=== PATIENT | female | born 1960 | race Caucasian/White ===

== ENCOUNTER 2016-07-25 17:27 | Inpatient (IN) | payer OTHER ==
[2016-07-25] MEDS ORDERED: IBUPROFEN 200 MG TAB PO ONE (17:50)
[2016-07-25] MEDS ORDERED: ACETAMINOPHEN 325 MG TAB PO ONE (18:07)
[2016-07-25 18:31] LABS: COLOR YELLOW; LEUKOCYTE ESTERASE,URINE TRACE (NEGATIVE); NITRITE,URINE NEGATIVE (NEGATIVE)
[2016-07-25 18:44] LABS: BACTERIA 3+ /hpf (NONE SEEN)
[2016-07-25] MEDS ORDERED: NS 1,000 ML IV ONE ×2 (18:44→20:04)
[2016-07-25] MEDS ORDERED: ONDANSETRON 4 MG/2 ML VIAL IVP ONE (19:00)
[2016-07-25 19:07] LABS: ADD MORPH? NO; ADD SCAN? YES; FRAGMENT RBC FLAG 0 (0-99); HEMATOCRIT 44.1 % (38.0-47.0); HEMOGLOBIN 14.1 g/dL (12.6-16.3); LEFT SHIFT FLG 10 (0-99); LIPEMIA HEMOLYSIS FLAG 80 (0-99); MEAN CELL HEMOGLOBIN 31.1 pg (27.9-34.1); MEAN CELL VOLUME 97.4 fL (81.5-99.8); MEAN PLATELET VOLUME 10.9 fL (8.7-11.7); PLATELET CLUMPS FLAG 10 (0-99); PLATELET COUNT 66 10^3/uL (150-400); RED BLOOD CELL COUNT 4.53 10^6/uL (4.18-5.33); RED CELL DISTRIBUTION WIDTH 14.2 % (11.5-15.2)
[2016-07-25 19:22] LABS: ATYPICAL LYMPHOCYTE FLAG 220 (0-99)
[2016-07-25 19:23] LABS: ADD DIFF? YES; SCAN POSITIVE
[2016-07-25 19:27] LABS: ALBUMIN 3.6 g/dL (3.5-5.0); ALKALINE PHOSPHATASE 62 IU/L (38-126); ANION GAP 14 mEq/L (8-16); BILIRUBIN,TOTAL 0.5 mg/dL (0.1-1.4); BILIRUBIN-CONJUGATED 0.3 mg/dL (0.0-0.5); BILIRUBIN-UNCONJUGATED 0.2 mg/dL (0.0-1.1); CALCIUM 8.2 mg/dL (8.5-10.4); CARBON DIOXIDE 23 mEq/l (22-31); CHLORIDE 94 mEq/L (97-110); CREATININE 0.9 mg/dL (0.6-1.0); GLOMERULAR FILTRATION RATE > 60; GLUCOSE 127 mg/dL (70-100); POTASSIUM 3.5 mEq/L (3.5-5.2); SODIUM 131 mEq/L (134-144); TOTAL PROTEIN 6.8 g/dL (6.3-8.2)
[2016-07-25 19:29] LABS: MACROCYTES 1+; PLATELET ESTIMATE DECREASED (ADEQ)
[2016-07-25 19:41] LABS: ALANINE AMINOTRANSFERASE 1403 IU/L (9-52); ASPARTATE AMINOTRANSFERASE 1933 IU/L (14-46)
--- NOTE | 2016-07-25 20:02 | UCPHY ---
H & P Patient Type: New Chief Complaint Nursing Narrative: c/o UTI/Vaginal infection /dizzyness/weakness /vomiting started 5 days ago - arrived from [facility] today Time Seen by Provider: 07/25/16 19:05 HPI/ROS: 55-year-old female presents complaining of fever, possible urinary tract infection, vomiting diarrhea generalized weakness. Three weeks ago she went to [facility] upon arriving there she had cold symptoms of sore throat earache and cough, she was started on amoxicillin and took that for 7 days. After that she was at a game preserve and following that a wedding in [facility]. Approximately 5 days ago she began to have nausea a poor appetite and then 2 days ago developed high fevers, vomiting and diarrhea. She chose to fly home despite feeling extremely ill. She was not on malaria prophylaxis. She states area of [facility] did not require it. She denies any unusual exposures. No other members of her family are ill. They all travelled together an ate similar foods. She denies any significant prior medical hx. She denies rash. Review of systems as per hpi General positive fever positive chills positive weakness HEENT no eye pain no eye discharge. No eye redness, no sore throat Respiratory no cough, no shortness of breath Cardiac no chest pain, no peripheral edema GI no abdominal pain, positive diarrhea, no constipation, positive nausea positive vomiting no flank pain, no hematuria, no dysuria Musculoskeletal no myalgias, no joint pain Heme no easy bruising, no easy bleeding Endo no polyuria, no polydipsia Skin no rashes, no pruritus Neuro no syncope, positive dizziness, no headaches Psych is no suicidal ideation, no homicidal ideation Source: Patient Exam Limitations: Clinical condition - Personal History Current Tetanus Diphtheria and Acellular Pertussis (TDAP): Unsure - Medical/Surgical History Hx Asthma: No Hx Chronic Respiratory Disease: No Hx Diabetes: No Hx Cardiac Disease: No Hx Renal Disease: No Hx Cirrhosis: No Hx Alcoholism: No Hx HIV/AIDS: No Hx Splenectomy or Spleen Trauma: No Other PMH: denies - Family History Significant Family History: No pertinent family hx - Social History Smoking Status: Never smoked Alcohol Use: Occasionally Drug Use: None - Physical Exam Exam: 55-year-old female appears ill, vital signs stable, febrile to 38 Atraumatic normocephalic Pupils round reactive to light bilaterally, extraocular muscles intact, anicteric Oropharynx dry mucosa no erythema no exudate Neck supple, no meningismus Lungs clear to auscultation bilaterally Heart rapid rate regular rhythm Abdomen-obese, bowel sounds hyperactive, no pulsatile mass no tenderness no guarding no rebound Extremities no cyanosis clubbing or edema Back no CVA tenderness Skin no rash Neuro-no focal motor or sensory deficit, generalized weakness noted Constitutional: Initial Vital Signs Temperature (C) 38 C 07/25/16 17:38 Heart Rate 78 07/25/16 17:38 Respiratory Rate 18 07/25/16 17:38 Blood Pressure 148/78 H 07/25/16 17:38 O2 Sat (%) 95 07/25/16 17:38 O2 Delivery Mode Room Air Allergies/Adverse Reactions: No Known Allergies Allergy (Unverified 07/25/16 17:37) Home Medications: Medication Instructions Recorded NK [No Known Home Meds] 07/25/16 Medical Decision Making - Diagnostics Imaging: CT brain negative Chest x-ray negative, however poor inspiration ED Course/Re-evaluation: Patient seen and evaluation begun for fever, diarrhea. IV established Normal saline fluids started Labs sent Influenza swab sent Lactate added urine sent Blood cultures added ct brain cxr Labs-White blood cell count 3.7 with a large left shift with 38% bands Electrolytes sodium low at 131 chloride 94 BUN and creatinine within normal limits LFTs AST and ALT markedly elevated Lactate normal Chest x-ray negative CT brain negative Urinalysis positive for white blood cells, trace leuk esterase negative for nitrite positive for 3+ bacteria Patient with history of diarrhea but no stool made while at Urgent Care will need stool testing when she has her next diarrhea Also patient will still need a malaria smear Differential diagnosis considered Gastroenteritis, urinary tract infection, urosepsis, sepsis, bacteremia, severe dehydration, malaria, typhoid, dengue fever Impression Acute gastroenteritis Urinary tract infection Severe dehydration Appearance concerning for impending sepsis I discussed this case with the infectious disease specialist, who recommended ertapenem and vancomycin. I also discussed this case with the hospitalist. Patient to be admitted at [facility] for further treatment and evaluation - Data Points Laboratory Results: Laboratory Results 07/25/16 18:50 07/25/16 18:50 07/25/16 07/25/16 07/25/16 20:25 18:50 18:50 WBC 3.73 10^3/uL L 10^3/uL (3.80-9.50) RBC 4.53 10^6/uL 10^6/uL (4.18-5.33) Hgb 14.1 g/dL g/dL (12.6-16.3) Hct 44.1 % % (38.0-47.0) MCV 97.4 fL fL (81.5-99.8) MCH 31.1 pg pg (27.9-34.1) MCHC 32.0 g/dL L g/dL (32.4-36.7) RDW 14.2 % % (11.5-15.2) Plt Count 66 10^3/uL L 10^3/uL (150-400) MPV 10.9 fL fL (8.7-11.7) Neut % (Auto) Not Reported Lymph % (Auto) Not Reported Gonzales % (Auto) Not Reported Eos % (Auto) Not Reported Baso % (Auto) Not Reported Nucleat RBC Rel Count 0.0 % % (0.0-0.2) Absolute Neuts (auto) Not Reported Absolute Lymphs (auto) Not Reported Absolute Monos (auto) Not Reported Absolute Eos (auto) Not Reported Absolute Basos (auto) Not Reported Absolute Nucleated RBC 0.00 10^3/uL 10^3/uL (0-0.01) Immature Gran % Not Reported Seg Neutrophils % 33 % % Band Neutrophils % 38 % % Lymphocytes % 27 % % Monocytes % 2 % % Immature Gran # Not Reported Absolute Seg Neuts 1.2 K/MM3 L K/MM3 (1.8-7) Absolute Band Neuts 1.4 K/MM3 H K/MM3 (0-0.7) Absolute Lymphocytes 1.0 K/mm3 K/mm3 (1.0-4.8) Absolute Monocytes 0.1 K/mm3 K/mm3 (0-0.8) Platelet Estimate DECREASED L (ADEQ) Oval Macrocytes 1+ H VBG Lactic Acid 0.5 mmol/L L mmol/L (0.7-2.1) Sodium 131 mEq/L L mEq/L (134-144) Potassium 3.5 mEq/L mEq/L (3.5-5.2) Chloride 94 mEq/L L mEq/L (97-110) Carbon Dioxide 23 mEq/l mEq/l (22-31) Anion Gap 14 mEq/L mEq/L (8-16) BUN 21 mg/dL mg/dL (7-23) Creatinine 0.9 mg/dL mg/dL (0.6-1.0) Estimated GFR > 60 Glucose 127 mg/dL H mg/dL (70-100) Calcium 8.2 mg/dL L mg/dL (8.5-10.4) Total Bilirubin 0.5 mg/dL mg/dL (0.1-1.4) Conjugated Bilirubin 0.3 mg/dL mg/dL (0.0-0.5) Unconjugated Bilirubin 0.2 mg/dL mg/dL (0.0-1.1) AST 1933 IU/L H IU/L (14-46) ALT 1403 IU/L H IU/L (9-52) Alkaline Phosphatase 62 IU/L IU/L (38-126) Total Protein 6.8 g/dL g/dL (6.3-8.2) Albumin 3.6 g/dL g/dL (3.5-5.0) Lipase 266.0 IU/L IU/L (23-300) Urine Color Urine Appearance Urine pH Ur Specific [place] Urine Protein Urine Ketones Urine Blood Urine Nitrate Urine Bilirubin Urine Urobilinogen Ur Leukocyte Esterase Urine RBC Urine WBC Ur Epithelial Cells Urine Bacteria Hyaline Casts Ur Culture Indicated? Urine Glucose Influenza Typ A,B (DFA) 07/25/16 07/25/16 18:28 18:00 WBC RBC Hgb Hct MCV MCH MCHC RDW Plt Count MPV Neut % (Auto) Lymph % (Auto) Gonzales % (Auto) Eos % (Auto) Baso % (Auto) Nucleat RBC Rel Count Absolute Neuts (auto) Absolute Lymphs (auto) Absolute Monos (auto) Absolute Eos (auto) Absolute Basos (auto) Absolute Nucleated RBC Immature Gran % Seg Neutrophils % Band Neutrophils % Lymphocytes % Monocytes % Immature Gran # Absolute Seg Neuts Absolute Band Neuts Absolute Lymphocytes Absolute Monocytes Platelet Estimate Oval Macrocytes VBG Lactic Acid Sodium Potassium Chloride Carbon Dioxide Anion Gap BUN Creatinine Estimated GFR Glucose Calcium Total Bilirubin Conjugated Bilirubin Unconjugated Bilirubin AST ALT Alkaline Phosphatase Total Protein Albumin Lipase Urine Color YELLOW Urine Appearance CLEAR Urine pH 6.0 (5.0-7.5) Ur Specific [place] >= 1.030 (1.002-1.030) Urine Protein 2+ H (NEGATIVE) Urine Ketones NEGATIVE (NEGATIVE) Urine Blood 3+ H (NEGATIVE) Urine Nitrate NEGATIVE (NEGATIVE) Urine Bilirubin NEGATIVE (NEGATIVE) Urine Urobilinogen 0.2 EU EU (0.2-1.0) Ur Leukocyte Esterase TRACE H (NEGATIVE) Urine RBC 3-5 /hpf H /hpf (0-3) Urine WBC 10-15 /hpf H /hpf (0-3) Ur Epithelial Cells 2+ /lpf H /lpf (NONE-1+) Urine Bacteria 3+ /hpf H /hpf (NONE SEEN) Hyaline Casts 1-3 /lpf H /lpf (0-1) Ur Culture Indicated? INDICATED H (NI) Urine Glucose NEGATIVE (NEGATIVE) Influenza Typ A,B (DFA) NEGATIVE FOR FLU (NEGATIVE) Medications Given: Discontinued Medications Acetaminophen (Tylenol) 650 mg PO EDNOW ONE Stop: 07/25/16 18:08 Last Admin: 07/25/16 18:09 Dose: 1,000 mg Sodium Chloride (Ns) 1,000 mls @ 0 mls/hr IV ONCE ONE PRN Reason: Wide Open Stop: 07/25/16 18:45 Last Admin: 07/25/16 18:55 Dose: 1,000 mls Sodium Chloride (Ns) 1,000 mls @ 0 mls/hr IV ONCE ONE PRN Reason: Wide Open Stop: 07/25/16 20:05 Last Admin: 07/25/16 20:15 Dose: 1,000 mls Ertapenem 1 gm/ Sodium (Chloride) 100 mls @ 200 mls/hr IV EDNOW ONE PRN Reason: Protocol Stop: 07/25/16 21:25 Last Admin: 07/25/16 21:20 Dose: 100 mls Vancomycin HCl 2 gm/ Sodium (Chloride) 500 mls @ 250 mls/hr IV EDNOW ONE PRN Reason: Protocol Stop: 07/25/16 22:55 Last Admin: 07/25/16 21:20 Dose: 500 mls Ibuprofen (Motrin) 400 mg PO EDNOW ONE Stop: 07/25/16 17:51 Last Admin: 07/25/16 18:01 Dose: 400 mg Ondansetron HCl (Zofran) 4 mg IVP EDNOW ONE Stop: 07/25/16 19:01 Last Admin: 07/25/16 19:07 Dose: 4 mg Departure - Departure Disposition: [facility] Acute Condition: Fair - PQRS PQRS Measurement: Not applicable
[2016-07-25] MEDS ORDERED: VANCOMYCIN 2 GM in NS 500 ML IV ONE (20:56)
[2016-07-25] MEDS ORDERED: ERTAPENEM 1 GM in NS 100 ML IV ONE (20:56)
[2016-07-26] MEDS ORDERED: ONDANSETRON 4 MG/2 ML VIAL IVP PRN (01:40)
[2016-07-26] MEDS ORDERED: PROMETHAZINE HCL 25 MG TAB PO PRN (01:40)
[2016-07-26] MEDS ORDERED: ONDANSETRON DISINTEGRATING 4 MG TAB PO PRN (01:40)
[2016-07-26] MEDS: NS 1,000 ML IV SCH ×3 (01:57→19:57)
--- NOTE | 2016-07-26 02:32 | GHP ---
[f rep st] HISTORY AND PHYSICAL DATE OF ADMISSION: 07/25/2016 HISTORY OF PRESENT ILLNESS: The patient is a pleasant 55-year-old female with minimal past medical history, just returned from [facility] for a trip for a wedding. She was there for about a week o r longer. She, the last 5 days, has had fever, chills, some nausea, some vomiting, some urgency, fr equency, dysuria, and a dry cough as well as general malaise. She also had a headache. She complet ed a 7 day course of Augmentin while there. She says she had about 4-5 drinks per day while there, which is unusual for her. She has not taken a significant amount of Tylenol. The patient was in [facility] for 3 weeks. She went to a game preserve and she had a sandwich wit h some suspect lettuce, and she also ate local sausage jerky style meal that was [facility] [place] a [facility]. She is on malaria prophylaxis. She said this part of does not have endemic malaria. No one around her has been sick. She has not noticed jaundice, easy bleeding, or easy bruising. REVIEW OF SYSTEMS: Complete 10-point review of systems conducted and negative except as noted in th e HPI. PAST MEDICAL HISTORY: None. ALLERGIES: None. MEDICATIONS: Home prescriptions are none. FAMILY HISTORY: Family members have not been sick during this hospitalization. PHYSICAL EXAMINATION: VITAL SIGNS: Presenting vitals: Temperature 38, blood pressure 148/78, puls e 78, breathing 18 times a minute, 95% on room air. GENERAL: No acute distress. Appears fatigued. HEENT: Sclerae anicteric. Oropharynx clear. Mucous membranes are moist. NECK: Supple without lymphadenopathy or JVD. LUNGS: Clear to auscultation bilaterally. HEART: S1, S2. ABDOMEN: Soft , nontender, nondistended. There is no right upper quadrant tenderness. There is no Onofre sign. There is no ascites. EXTREMITIES: Lower extremities show trace edema bilaterally. Calves are nont maryse. SKIN: Without rash. NEUROLOGIC: Grossly nonfocal. LABS: White count 3.7. No differential. Hematocrit 44, platelets are 66,000. Venous lactate is 0 .5. Sodium 131, potassium 3.5, chloride 94, bicarb 23, BUN 21, creatinine 0.9, glucose 127. Calciu m low at 8.2. Bilirubin is normal. AST is 1933, ALT is 1403, alkaline phosphatase 62. Lipase 266. UA shows 10-50 white cells, 3-5 red cells, 3+ bacteria, 2+ epithelial cells. She is influenza neg ative. RADIOLOGY: Chest x-ray, interpreted by me, is a poor quality AP study with limited interpretability . Cannot rule out infiltrate. Noncontrast head CT shows nonspecific maxillary sinuses. I have dis cussed the case with Dr. Workman of Urgent Care. ASSESSMENT AND PLAN: A 55-year-old female with fever and transaminitis. 1. Transaminitis. I suspect this is secondary to a viral illness. It sounds like her alcohol use was heavy for her but not enough to cause an acute alcoholic hepatitis. 2. I will check a right upper quadrant ultrasound to rule out any ductal pathology. Her pattern of LFT is not consistent with cholestasis. I will check an acute hepatitis panel. Hold Tylenol. She denies heavy Tylenol, so we will not check a level. I do not think this is alcohol. 3. Question sepsis. This patient does not have sepsis. She has a fever and transaminitis. 4. Urinary tract infection. This is a dirty UA sample. She received 7 days of amoxicillin. I tiffanie l not treat this. 5. Question pneumonia. I will check a PA and lateral chest x-ray. Her body habitus precludes a hi gh quality exam, as her admission chest x-ray was low quality. 6. Antibiotics. The patient received vancomycin, at urgent care. Will not continue ant ibiotics at this time. 7. Hyponatremia, mild. I suspect this is hypovolemic hyponatremia. Give her a liter of saline and follow. 8. Fever and travel returning from [place]. Will check malaria. ID is being consulted by urgent ca re and we will acute hepatitis panel. 9. Prophylaxis. Will check SCDs I will order an INR in the morning. Should she have a prolonged h ospitalization, then pharmacologic prophylaxis is indicated. /[id number]/MODL
[2016-07-26 05:43] LABS: % IMMATURE GRANULYOCYTES 0.6 % (0.0-1.1); ABSOLUTE IMMATURE GRANULOCYTES 0.02 10^3/uL (0.00-0.10); ADD DIFF? NO; ADD MORPH? NO; ADD SCAN? YES; FRAGMENT RBC FLAG 0 (0-99); HEMATOCRIT 39.6 % (38.0-47.0); HEMOGLOBIN 13.1 g/dL (12.6-16.3); LEFT SHIFT FLG 30 (0-99); LIPEMIA HEMOLYSIS FLAG 80 (0-99); MEAN CELL HEMOGLOBIN 29.5 pg (27.9-34.1); MEAN CELL HEMOGLOBIN CONCENTR. 33.1 g/dL (32.4-36.7); MEAN CELL VOLUME 89.2 fL (81.5-99.8); MEAN PLATELET VOLUME 11.2 fL (8.7-11.7); PLATELET CLUMPS FLAG 0 (0-99); PLATELET COUNT 80 10^3/uL (150-400); RED BLOOD CELL COUNT 4.44 10^6/uL (4.18-5.33); RED CELL DISTRIBUTION WIDTH 14.3 % (11.5-15.2)
[2016-07-26 05:48] LABS: ATYPICAL LYMPHOCYTE FLAG 270 (0-99)
[2016-07-26 05:49] LABS: ALBUMIN 2.9 g/dL (3.5-5.0); ALKALINE PHOSPHATASE 47 IU/L (38-126); ANION GAP 7 mEq/L (8-16); BILIRUBIN,TOTAL 0.4 mg/dL (0.1-1.4); CALCIUM 7.3 mg/dL (8.5-10.4); CARBON DIOXIDE 24 mEq/l (22-31); CHLORIDE 102 mEq/L (97-110); CREATININE 0.9 mg/dL (0.6-1.0); GLOMERULAR FILTRATION RATE > 60; GLUCOSE 89 mg/dL (70-100); POTASSIUM 3.3 mEq/L (3.5-5.2); SODIUM 133 mEq/L (134-144); TOTAL PROTEIN 5.7 g/dL (6.3-8.2)
[2016-07-26 05:55] LABS: ASPARTATE AMINOTRANSFERASE 1290 IU/L (14-46)
[2016-07-26 05:56] LABS: ALANINE AMINOTRANSFERASE 1060 IU/L (9-52)
[2016-07-26 06:13] LABS: INR 1.11 (0.83-1.16); PROTIME(PATIENT) 14.2 SEC (12.0-15.0)
[2016-07-26 07:14] LABS: SCAN NEGATIVE
[2016-07-26] MEDS: IBUPROFEN 200 MG TAB PO PRN ×3 (07:34→22:23)
[2016-07-26] MEDS ORDERED: POTASSIUM CL 20 MEQ/15 ML UDCUP PO ONE (09:06)
--- NOTE | 2016-07-26 09:08 | HOSPPROG ---
Hospitalist Progress Note Assessment/Plan: #E coli (Shiga-toxin) gastrointestinal infection: no abd pain, hematochezia. Cont IVFs. No abx as can exacerbate toxins #Leukopenia/thrombocytopenia: suspect viral. Hep serologies and HIV negative. CMV, mono pending #Transaminitis: out of proportion for bacterial infection. Suspect viral. Check mono, CMV. Malaria smear negative #Hypovolemic hyponatremia: cont IVFs #Hypokalemia: replete # Subjective: denies abd pain or bloody stools Objective: Vital Signs Temp Pulse Resp BP Pulse Ox 39.2 C H 72 16 104/46 L 95 07/26/16 08:42 07/26/16 07:31 07/26/16 07:31 07/26/16 07:31 07/26/16 07:31 Microbiology 07/26/16 00:30 Gastrointestinal Tract Panel (PCR) - Final Stool E.coli Shiga-Like Toxin Pos Laboratory Results 07/26/16 04:17 07/26/16 04:17 07/25/16 07/26/16 07/27/16 05:59 05:59 05:59 Intake Total 2794 Balance 2794 PT 14.2 SEC (12.0-15.0) 07/26/16 04:17 INR 1.11 (0.83-1.16) 07/26/16 04:17 - Physical Exam Constitutional: other (ill-appearing) Eyes: PERRL Ears, Nose, Mouth, Throat: moist mucous membranes, hearing normal Cardiovascular: regular rate and rhythym, no murmur, rub, or gallop Respiratory: no respiratory distress, no rales or rhonchi Gastrointestinal: normoactive bowel sounds, soft, non-tender abdomen, no palpable masses Genitourinary: no bladder fullness Skin: warm Musculoskeletal: full muscle strength Neurologic: AAOx3, sensation intact bilaterally Psychiatric: interacting appropriately ICD10 Worksheet Patient Problems: Problems Problem Status Onset Thrombocytopenia Acute - ICD10 Problem Qualifiers (1) Thrombocytopenia
[2016-07-26 09:32] LABS: MALARIAL PREP NONE SEEN (NONE SEEN)
[2016-07-26] MEDS: CALCIUM CARBONATE 500 MG CHEWABLE TAB PO PRN ×2 (10:49→15:28)
--- NOTE | 2016-07-26 17:00 | GCON ---
[f rep st] CONSULTATION INFECTIOUS DISEASE CONSULTATION DATE OF CONSULTATION: 07/26/2016 REASON FOR CONSULTATION: Febrile illness following travel. HISTORY OF PRESENT ILLNESS: A 55-year-old woman with minimal past medical history presented to urgent care in the evening of 07/25/2016, complaining of concerns for UTI, dizziness, weakness, diarrhea, and vomiting after returning from a 3-week trip to [facility]. The patient had a fairly uneventful trip to [facility] where she is originally from, spending time in [place] and approximately 1 hour outside of [place] at a game reserve prior to return to the . When she was returning, she subsequently developed severe malaise on the aircraft, was very sleepy, slept the entire time, and on the subsequently developed diarrhea and vomiting. She also had subjective fevers, chills. She primarily presented to urgent care on the , as her primary care had no urgent slots, and the patient felt significantly dehydrated. Significantly, the patient's diarrhea is better today. She denies any bright red blood per rectum or melena. She also reports that her malaise is slightly better. PAST MEDICAL HISTORY: None. ALLERGIES: NKDA. MEDICATIONS: The patient received 1 dose of ertapenem and 1 dose of 2 g of vancomycin in the emergency room. FAMILY HISTORY: No other illnesses in the family. No pertinent diseases that run in the family. REVIEW OF SYSTEMS: A complete 10-point review of systems was performed and is negative except as mentioned in the HPI. Patient does have a mild cough. PHYSICAL EXAMINATION: VITAL SIGNS: Temperature 38.8, blood pressure 94/56, heart rate 65, respiratory rate 16, saturation 94% on room air. GENERAL: This is fairly nontoxic-appearing woman, lying in bed. HEENT: No oral lesions. Moist mucous membranes. NECK: Supple. No lymphadenopathy. CARDIOVASCULAR: Regular rate and rhythm. No murmurs. CHEST: Clear to auscultation bilaterally. ABDOMEN: Hyperactive bowel sounds. Soft, nontender, slightly distended. EXTREMITIES: No clubbing, cyanosis, or edema. NEUROLOGIC: She was alert and oriented x4 with fluent speech, moving all 4 extremities equally. LABORATORY DATA: White count 3.5, hematocrit 39, platelets of 80, 65% neutrophils, 30% lymphocytes, 2% monos, 0% eosinophils. Initially, the patient had 38% bands. INR 1.1. Creatinine 0.9. LFTs on admission: AST was 1933; today is 1290. ALT was 1403; today is 1060. Total bilirubin is normal. Albumin today 2.9, lipase 266. Malaria smear was negative. Influenza DFA was negative. Hepatitis serologies, including A, B, and C are negative. CMV serologies are pending. Blood cultures are pending. Stool PCR was positive for E coli, shiga-producing toxin E coli. ASSESSMENT: A 55-year-old woman who presents to the emergency room with significant volume depletion due to N/V/D and found to have leukopenia, thrombocytopenia and hepatitis. Subsequently identified to have traveler diarrhea due to Escherichia coli with shiga-producing toxin. 1. Traveler's diarrhea secondary to Escherichia coli with shiga-producing toxin 2. Fever 3. Hepatitis, improving w supportive care, negative acute viral hepatitis serologies. Hypovolemia secondary to travelers diarrhea or other viral illness. Noting, Dengue unlikely in [place]. 4. Leukopenia, thrombocytopenia likely response to Escherichia coli with shiga- producing toxin RECOMMENDATIONS; 1. Continue supportive care. 2. Hold antibiotics unless patient is bacteremic. In the absence of bacteremia , treatment of E coli with shiga-producing toxin, could elicit a more severe HUS response. 3. Agree with further workup for other etiologies of hepatitis such as cytomegalovirus, EBV. 4. Warnings given about possible contact from local Health Department Thank you for this consultation. We will continue to follow along with you. /[id number]/MODL MTDD
[2016-07-26] MEDS: FAMOTIDINE 20 MG TAB PO SCH (18:16)
[2016-07-27] MEDS: NS 1,000 ML IV SCH (04:31)
[2016-07-27 04:33] VITALS: BP 96/51
[2016-07-27] MEDS: IBUPROFEN 200 MG TAB PO PRN (04:47)
[2016-07-27 05:30] LABS: HEMATOCRIT 34.4 % (38.0-47.0); HEMOGLOBIN 11.4 g/dL (12.6-16.3); MEAN CELL HEMOGLOBIN 29.8 pg (27.9-34.1); MEAN CELL HEMOGLOBIN CONCENTR. 33.1 g/dL (32.4-36.7); MEAN CELL VOLUME 89.8 fL (81.5-99.8); RED BLOOD CELL COUNT 3.83 10^6/uL (4.18-5.33); RED CELL DISTRIBUTION WIDTH 14.5 % (11.5-15.2)
[2016-07-27 05:56] LABS: ALANINE AMINOTRANSFERASE 795 IU/L (9-52); ALBUMIN 2.5 g/dL (3.5-5.0); ALKALINE PHOSPHATASE 50 IU/L (38-126); ANION GAP 5 mEq/L (8-16); BILIRUBIN,TOTAL 0.3 mg/dL (0.1-1.4); CALCIUM 7.4 mg/dL (8.5-10.4); CARBON DIOXIDE 23 mEq/l (22-31); CHLORIDE 107 mEq/L (97-110); CREATININE 0.8 mg/dL (0.6-1.0); GLOMERULAR FILTRATION RATE > 60; GLUCOSE 83 mg/dL (70-100); POTASSIUM 3.7 mEq/L (3.5-5.2); SODIUM 135 mEq/L (134-144); TOTAL PROTEIN 4.8 g/dL (6.3-8.2)
[2016-07-27 06:15] LABS: ASPARTATE AMINOTRANSFERASE 840 IU/L (14-46)
--- NOTE | 2016-07-27 08:12 | HOSPPROG ---
Hospitalist Progress Note Assessment/Plan: #E coli (Shiga-toxin) gastrointestinal infection: no abd pain, hematochezia. Cont IVFs. No abx as can exacerbate toxins/HUS #Leukopenia/thrombocytopenia: suspect viral. Hep serologies and HIV negative. CMV, mono pending #Transaminitis: Suspect viral. Monospot and malaria negative. CMV pending #Hypovolemic hyponatremia: resolved #Hypokalemia: repleted #DC today # Subjective: feeling better Objective: Vital Signs Temp Pulse Resp BP Pulse Ox 38.9 C H 69 20 96/51 L 89 L 07/27/16 04:32 07/27/16 04:32 07/27/16 04:32 07/27/16 04:32 07/27/16 04:32 Microbiology 07/26/16 00:30 Gastrointestinal Tract Panel (PCR) - Final Stool E.coli Shiga-Like Toxin Pos Laboratory Results 07/27/16 04:23 07/27/16 04:23 07/26/16 07/27/16 07/28/16 05:59 05:59 05:59 Intake Total 2794 2967 Balance 2794 2967 PT 14.2 SEC (12.0-15.0) 07/26/16 04:17 INR 1.11 (0.83-1.16) 07/26/16 04:17 - Physical Exam Constitutional: no apparent distress Eyes: PERRL Ears, Nose, Mouth, Throat: moist mucous membranes Cardiovascular: regular rate and rhythym Respiratory: no respiratory distress, no rales or rhonchi Gastrointestinal: normoactive bowel sounds, soft, non-tender abdomen Skin: warm, normal color, no rashes or abrasions Neurologic: AAOx3 ICD10 Worksheet Patient Problems: Problems Problem Status Onset Thrombocytopenia Acute - ICD10 Problem Qualifiers (1) Thrombocytopenia
[2016-07-27 08:20] VITALS: PULSE 62; RESP 16; TEMP 99.6; O2SAT 92
[2016-07-27] MEDS: FAMOTIDINE 20 MG TAB PO SCH (09:50)
[2016-07-27] MEDS ORDERED: PHENAZOPYRIDINE HCL 100 MG TAB PO SCH (13:00)
--- NOTE | 2016-07-27 15:21 | PCMIDPN ---
Assessment/Plan: Assessment: Fever with nausea and diarrhea. Laboratory abnormalities include marked transaminitis as well as low white blood cell count and platelets. Patient developed this illness shortly after returning from a multi week trip to [facility]. During that trip she was at a game preserved. She recalls no tick bites. She recalls no lesions consistent with eschar. However the laboratory abnormalities are reminiscent of rickettsial disease. Will send off rickettsial panel serologies for spotted fever family. Will not treat this potential empirically with doxycycline due to its cross treatment of the sugar toxin E coli detected in her stool by PCR. It is unclear whether all of her laboratory abnormalities could be due to shiga toxin producing E coli but it is possible. If this is the sole pathogen in this requires no antibiotic treatment. Plan: 1. Continue to observe off antibiotics. 2. Follow up in the office as an outpatient in approximately 1 week time. 3. Send off rickettsial serologically panel. 07/27/16 17:08 Subjective: Patient is resting in her hospital bed. She states that she feels significantly improved. Still does not feel well but wishes to recover at home. Objective: No antibiotics Vital Signs Temp Pulse Resp BP Pulse Ox 37.6 C 62 16 96/51 L 92 07/27/16 08:00 07/27/16 08:00 07/27/16 08:00 07/27/16 08:00 07/27/16 08:00 Laboratory Results 07/27/16 04:23 07/27/16 04:23 07/26/16 07/27/16 07/28/16 05:59 05:59 05:59 Intake Total 2794 2967 Balance 2794 2967 - Physical Exam General Appearance: WD/WN, alert, no apparent distress, toxic (Mildly) Respiratory: lungs clear, normal breath sounds, No respiratory distress Cardiac/Chest: regular rate, rhythm, No tachycardia Extremities: non-tender, normal inspection Skin: normal color, warm/dry, No rash Neuro/Psych: alert, normal mood/affect, oriented x 3 ICD10 Worksheet Patient Problems: Problems Problem Status Onset Thrombocytopenia Acute
--- NOTE | 2016-07-27 17:11 | GDS ---
[f rep st] DISCHARGE SUMMARY DISCHARGE DIAGNOSES: 1. Escherichia coli-shiga toxin gastrointestinal infection. 2. Leukopenia. 3. Thrombocytopenia. 4. Transaminitis. 5. Hypovolemic hyponatremia. 6. Hypokalemia. 7. Dysuria. CONSULTATIONS: Infectious Disease. HISTORY OF PRESENT ILLNESS: The patient is a pleasant 55-year-old female with no significant past medical history who just returned from visiting her home in [facility] for a trip for a wedding. She was there for a week. Over the last 5 days, she reported fevers, chills, nausea, vomiting, urinary urgency, frequency and malaise. She also reported a headache, but no neck stiffness. While there, she completed a 7 day course of Augmentin. She also reports drinking more alcohol than she normally does, 4-5 drinks. She denies significant Tylenol ingestion. While in [facility] she went to [employer] and had a sandwich [place] She is on malaria prophylaxis. She denies ill contacts. No rash or easy bruising. ASSESSMENT AND PLAN: 1. Escherichia coli-shiga toxin gastroenteritis: Stool PCR was positive. She actually denies abdominal pain. Did have diarrhea, no hematochezia. Given her significant transaminitis, platelets would be unusual with this bacteria infection. Will not treat with antibiotics as could worsen HUS. The patient was evaluated by Infectious Disease and another consideration is Rickettsial infection. These labs have been sent to [facility]. Patient will follow up with Dr. Duncan in 1 week. [place], malaria smear were negative. CMV IgG is positive, indicative of past infection. 2. Leukopenia/thrombocytopenia: This is again unusual given Escherichia coli infection. Can be seen with Rickettsia. Awaiting those labs. Treatment of choice would be doxycycline, however, will not treat as could exacerbate HUS syndrome and do not want to cause more harm if not the actual diagnosis. 3. Transaminitis: Again likely due to viral versus Rickettial infection. Some component may have been due to dehydration, but still out of proportion. These are trending down. Will have repeat with Infectious Disease. 4. Dysuria: Had a positive UA, but greater than 5 colonies on culture. Will provide Pyridium for symptom relief. 5. Diet: Clear. Advance as tolerated. 6. Disposition: Patient is stable for discharge. FOLLOWUP: 1. Dr. Duncan with Infectious Disease. 2. Repeat CMP, CBC. 3. New medications Pyridium for dysuria. /[id number]/MODL MTDD
== END 2016-07-27 15:15 | disposition home or self-care (01) | DRG 372 ==
LOC: CED 17:27 → CEDHOLD 21:27 → F3E 23:29
PROVIDERS: ADMIT Internal Medicine; ATTEND Internal Medicine
DX: A04.4 Other intestinal Escherichia coli infections (principal); E87.1 Hypo-osmolality and hyponatremia; R74.0 Nonspecific elevation of levels of transaminase and lactic acid dehydrogenase [LDH]; R30.0 Dysuria; E86.1 Hypovolemia; E87.6 Hypokalemia; E86.0 Dehydration; K75.9 Inflammatory liver disease, unspecified
CPT/HCPCS: 70450-PO; 71010-PO; 80048-PO; 80076-PO; 81003-PO; 81015-PO; 83605-PO; 83690-PO; 85025-PO; 86644-90; 86645-90; 87400-PO; 96361-PO; 96365-PO; 96366-PO; 96368-PO; 96375-PO; G0463-PO; G0472; J1335; J2405; J3370

== ENCOUNTER 2016-07-30 12:59 | Emergency (ER) | payer OTHER ==
--- NOTE | 2016-07-30 13:20 | EDPHY ---
HPI/HX/ROS/PE/MDM Narrative: CHIEF COMPLAINT: Diarrhea, abdominal pain HPI: The patient is a 55 y/o female, with recent diagnosis of e. coli, arriving with her family at the referral of Dr. Zuniga complaining of worsening nausea, diarrhea, and abdominal pain. She is from [facility] and recently returned to [place] from a trip there. During her flight back, she developed malaise, fever , and GI symptoms that ultimately required admission on 07/25/16, 5 days ago. She was diagnosed with e. coli during that 1-day stay and is being followed by infectious disease since discharge. She has had difficulty eating for the last several days due to nausea. She is not currently on antibiotics. Today, her nausea, diarrhea, and abdominal pain worsened. She denies a fever today. She does endorse an ongoing cough and dysuria that has been present throughout this illness. REVIEW OF SYSTEMS: Aside from elements discussed in the HPI, a comprehensive 10-point review of systems was reviewed and is negative. PMH: 2 c-sections; admission 07/25/16 for e. coli and transaminitis Reviewed prior medical records including admission notes and ID consultation from 07/25/16. SOCIAL HISTORY: From [facility]. Family at bedside. Recently quit smoking. ID : Dr. Sandra Zuniga. PHYSICAL EXAM: General:Patient is alert, in no acute distress. ENT:Eyes are normal to inspection. ENT inspection normal. Neck: Normal inspection. Full range of motion. Respiratory:No respiratory distress. Breath sounds normal bilaterally. Cardiovascular: Regular rate and rhythm. Strong peripheral pulses. Normal cap refill. Abdomen:The abdomen is soft with mild RLQ tenderness to palpation. There are no peritoneal signs. There are normal bowel sounds. Back: Normal to inspection. No tenderness to palpation. Skin: Normal color. No rash. Warm and dry. Extremities: Normal appearance. Full range of motion. Neuro: Oriented x3. Normal motor function. Normal sensory function. ED Course: IV established. Labs including cultures drawn. UA ordered. Chest x-ray ordered. 4mg IV Zofran and 1L IV NS administered. Study: Chest x-ray Indication: cough, fever, malaise Results: Chest x-ray was obtained. The results of the study are no infiltrate. Radiologist report pending. I viewed the images myself on the PACS system. 1430: Dr. Zuniga is in the ED assessing patient. She notes there is some faint urticaria on patient's upper chest and a small ulceration on her tongue. LFTs are elevated, but improved from previous visit. UA is unremarkable. 1530: Dr. Zuniga recommends outpatient follow up this week. Patient agrees with this plan. Return precautions given. MDM: This patient was sent to the ED by Efrain Clancy with continued malaise and diarrhea. Her vitals are normal and her exam is reassuring. Dr. Zuniga evaluated the patient in the ED and reviewed lab results with me. She believes this may represent Chikungunya and has sent off appropriate blood work which will be done at a referral facility. She recommends discharge to home from the ED and will be followed closely by Dr. Zuniga. I see no signs of septic shock, pyelonephritis, bowel obstruction or meningitis. - Data Points Laboratory Results: Laboratory Results 07/30/16 01:20 07/30/16 01:20 07/30/16 07/30/16 07/30/16 14:40 01:20 01:20 WBC 5.01 10^3/uL 10^3/uL (3.80-9.50) RBC 4.18 10^6/uL 10^6/uL (4.18-5.33) Hgb 12.3 g/dL L g/dL (12.6-16.3) Hct 36.3 % L % (38.0-47.0) MCV 86.8 fL fL (81.5-99.8) MCH 29.4 pg pg (27.9-34.1) MCHC 33.9 g/dL g/dL (32.4-36.7) RDW 14.6 % % (11.5-15.2) Plt Count 204 10^3/uL D 10^3/uL (150-400) MPV 10.7 fL fL (8.7-11.7) Neut % (Auto) 38.3 % L % (39.3-74.2) Lymph % (Auto) 52.3 % H % (15.0-45.0) [place] % (Auto) 7.2 % % (4.5-13.0) Eos % (Auto) 1.4 % % (0.6-7.6) Baso % (Auto) 0.6 % % (0.3-1.7) Nucleat RBC Rel Count 0.0 % % (0.0-0.2) Absolute Neuts (auto) 1.92 10^3/uL 10^3/uL (1.70-6.50) Absolute Lymphs (auto) 2.62 10^3/uL 10^3/uL (1.00-3.00) Absolute Monos (auto) 0.36 10^3/uL 10^3/uL (0.30-0.80) Absolute Eos (auto) 0.07 10^3/uL 10^3/uL (0.03-0.40) Absolute Basos (auto) 0.03 10^3/uL 10^3/uL (0.02-0.10) Absolute Nucleated RBC 0.00 10^3/uL 10^3/uL (0-0.01) Immature Gran % 0.2 % % (0.0-1.1) Seg Neutrophils % 37 % % Band Neutrophils % 5 % % Lymphocytes % 50 % % Monocytes % 7 % % Eosinophils % 1 % % Immature Gran # 0.01 10^3/uL 10^3/uL (0.00-0.10) Absolute Seg Neuts 1.85 10^/uL 10^/uL (1.70-6.50) Absolute Band Neuts 0.25 10^3/uL 10^3/uL (0.00-0.70) Absolute Lymphocytes 2.51 10^3/uL 10^3/uL (1.00-3.00) Absolute Monocytes 0.35 10^3/uL 10^3/uL (0.30-0.80) Absolute Eosinophils 0.05 10^3/uL 10^3/uL (0.03-0.40) RBC/WBC/PLT Morphology NORMAL (NORMAL) Atypical Lymphocytes 2+ H Platelet Estimate ADEQUATE (ADEQ) Smear Review By Pending Sodium 144 mEq/L mEq/L (134-144) Potassium 4.0 mEq/L mEq/L (3.5-5.2) Chloride 107 mEq/L mEq/L (97-110) Carbon Dioxide 28 mEq/l mEq/l (22-31) Anion Gap 9 mEq/L mEq/L (8-16) BUN 8 mg/dL mg/dL (7-23) Creatinine 0.6 mg/dL mg/dL (0.6-1.0) Estimated GFR > 60 Glucose 97 mg/dL mg/dL (70-100) Calcium 8.6 mg/dL D mg/dL (8.5-10.4) Total Bilirubin 0.7 mg/dL D mg/dL (0.1-1.4) AST 176 IU/L H IU/L (14-46) ALT 450 IU/L H IU/L (9-52) Alkaline Phosphatase 83 IU/L IU/L (38-126) Total Protein 6.0 g/dL L D g/dL (6.3-8.2) Albumin 3.0 g/dL L g/dL (3.5-5.0) Urine Color YELLOW Urine Appearance CLEAR Urine pH 7.0 (5.0-7.5) Ur Specific Vincent 1.002 (1.002-1.030) Urine Protein NEGATIVE (NEGATIVE) Urine Ketones NEGATIVE (NEGATIVE) Urine Blood 1+ H (NEGATIVE) Urine Nitrate NEGATIVE (NEGATIVE) Urine Bilirubin NEGATIVE (NEGATIVE) Urine Urobilinogen NEGATIVE EU EU (0.2-1.0) Ur Leukocyte Esterase NEGATIVE (NEGATIVE) Urine RBC 1-3 /hpf /hpf (0-3) Urine WBC 1-3 /hpf /hpf (0-3) Ur Epithelial Cells TRACE /lpf /lpf (NONE-1+) Urine Bacteria TRACE /hpf H /hpf (NONE SEEN) Urine Glucose NEGATIVE (NEGATIVE) Medications Given: Discontinued Medications Sodium Chloride (Ns) 1,000 mls @ 0 mls/hr IV ONCE ONE PRN Reason: Wide Open Stop: 07/30/16 13:44 Last Admin: 07/30/16 14:00 Dose: 1,000 mls Sodium Chloride (Ns) 1,000 mls @ 0 mls/hr IV ONCE ONE PRN Reason: Wide Open Stop: 07/30/16 15:30 Last Admin: 07/30/16 15:38 Dose: 1,000 mls Ondansetron HCl (Zofran) 4 mg IVP EDNOW ONE Stop: 07/30/16 13:44 Last Admin: 07/30/16 14:00 Dose: 4 mg General Time Seen by Provider: 07/30/16 13:00 Initial Vital Signs: Initial Vital Signs Temperature (C) 36.5 C 07/30/16 13:04 Heart Rate 70 03/25/17 13:04 Respiratory Rate 18 07/30/16 13:04 Blood Pressure 135/81 H 07/30/16 13:04 O2 Sat (%) 94 07/30/16 13:04 O2 Delivery Mode Room Air Allergies/Adverse Reactions: No Known Allergies Allergy (Verified 07/30/16 13:00) Home Medications: Medication Instructions Recorded Pyridium 07/30/16 Departure - Departure Disposition: Home, Routine, Self-Care Clinical Impression: Viral syndrome Diarrhea Qualifiers: Diarrhea type: presumed infectious Qualified Code(s): A09 - Infectious gastroenteritis and colitis, unspecified Condition: Good Instructions: Acute Diarrhea (ED), Viral Syndrome (ED) Additional Instructions: Follow up with Dr. Zuniga as discussed. Return to the ED for worsening of condition. Referrals: Diana Zuniga MD [Medical Doctor] - As per Instructions Report Scribed for: Edgar Holm Report Scribed by: Lavinia Navas Date of Report: 07/30/16 Time of Report: 13:20 Physician Review and Approval Statement: Portions of this note were transcribed by an ED scribe. I personally performed the history, physical exam, and medical decision making; and confirm the accuracy of the information in the transcribed note.
[2016-07-30 13:35] LABS: % IMMATURE GRANULYOCYTES 0.2 % (0.0-1.1); ABSOLUTE IMMATURE GRANULOCYTES 0.01 10^3/uL (0.00-0.10); ADD DIFF? NO; ADD MORPH? NO; ADD SCAN? YES; FRAGMENT RBC FLAG 0 (0-99); HEMATOCRIT 36.3 % (38.0-47.0); HEMOGLOBIN 12.3 g/dL (12.6-16.3); LEFT SHIFT FLG 0 (0-99); LIPEMIA HEMOLYSIS FLAG 90 (0-99); MEAN CELL HEMOGLOBIN 29.4 pg (27.9-34.1); MEAN CELL HEMOGLOBIN CONCENTR. 33.9 g/dL (32.4-36.7); MEAN CELL VOLUME 86.8 fL (81.5-99.8); MEAN PLATELET VOLUME 10.7 fL (8.7-11.7); PLATELET CLUMPS FLAG 10 (0-99); RED BLOOD CELL COUNT 4.18 10^6/uL (4.18-5.33); RED CELL DISTRIBUTION WIDTH 14.6 % (11.5-15.2)
[2016-07-30] MEDS ORDERED: ONDANSETRON 4 MG/2 ML VIAL IVP ONE (13:43)
[2016-07-30] MEDS ORDERED: NS 1,000 ML IV ONE ×2 (13:43→15:29)
[2016-07-30 13:47] LABS: ATYPICAL LYMPHOCYTE FLAG 300 (0-99)
[2016-07-30 13:48] LABS: PLATELET COUNT 204 10^3/uL (150-400)
[2016-07-30 14:00] LABS: ALANINE AMINOTRANSFERASE 450 IU/L (9-52); ALKALINE PHOSPHATASE 83 IU/L (38-126); ANION GAP 9 mEq/L (8-16); ASPARTATE AMINOTRANSFERASE 176 IU/L (14-46); BILIRUBIN,TOTAL 0.7 mg/dL (0.1-1.4); CALCIUM 8.6 mg/dL (8.5-10.4); CARBON DIOXIDE 28 mEq/l (22-31); CHLORIDE 107 mEq/L (97-110); CREATININE 0.6 mg/dL (0.6-1.0); GLOMERULAR FILTRATION RATE > 60; GLUCOSE 97 mg/dL (70-100); SODIUM 144 mEq/L (134-144)
[2016-07-30 14:22] LABS: SCAN POSITIVE
[2016-07-30 14:28] LABS: PLATELET ESTIMATE ADEQUATE (ADEQ)
[2016-07-30 14:43] VITALS: TEMP 98.4
[2016-07-30 14:49] LABS: COLOR YELLOW; LEUKOCYTE ESTERASE,URINE NEGATIVE (NEGATIVE); NITRITE,URINE NEGATIVE (NEGATIVE)
[2016-07-30 14:55] LABS: BACTERIA TRACE /hpf (NONE SEEN)
[2016-07-30 16:13] VITALS: BP 138/86; PULSE 61; RESP 16; O2SAT 93
--- NOTE | 2016-07-30 19:56 | GCON ---
[f rep st] CONSULTATION DATE OF CONSULTATION: 07/30/2016 REFERRING PHYSICIAN: Edgar Holm MD REASON FOR CONSULTATION: Persistent malaise in a patient with recent traveler's diarrhea. HISTORY OF PRESENT ILLNESS: This a 55-year-old woman known to the ID Service, as she was recently s een 07/26/2016 after admission to the hospital for febrile illness following travel. Workup demonst rated negative blood cultures to date and a positive stool PCR for E coli with Shiga like toxin prod uction. The patient was admitted to the hospital and had supportive care and was clinically feeling improved and was discharged on 07/27/2016. The patient was continuing to improve and yesterday, , increased her activity. She ran 4-5 errands and made dinner for her family. Today, she had wo rsening malaise, some abdominal cramping, 3-4 bouts of diarrhea, a low-grade temperature, dysuria, a nd dyspnea on exertion. She also notes that she has some oral ulcerations, but these have been pres ent since her hospitalization. She has continued to have poor p.o. intake, but is not lightheaded. As detailed in my last dictation, patient recently traveled to [facility] for a 3-week trip, retur [facility] the day prior to admission on 07/24/2016. While traveling back from [place], patient deve loped severe malaise, fever, and diarrhea. When she arrived back in [place], she was seen in the em ergency room. She was also found to have a significant leukopenia with a left shift with significan t bandemia of 38%. She also was found to have thrombocytopenia and a significant hepatitis with an initial AST of 1900 and an ALT of 1400. These improved over her hospital course with hydration. PAST MEDICAL HISTORY: None. ALLERGIES: NKDA. MEDICATIONS: Patient received 1 dose of ertapenem and 2 g of vancomycin in the emergency room on , but has not received any other antibiotics. REVIEW OF SYSTEMS: A complete 10-point review of systems was performed and was negative, except as mentioned in the HPI. PHYSICAL EXAM: VITAL SIGNS: Blood pressure 138/86, heart rate 61, respiratory rate 16, saturation 92% on room air, temperature 36.9. GENERAL: This is a nontoxic-appearing woman who appears somewha t uncomfortable. HEENT: Pupils are reactive bilaterally. Oropharynx shows moist mucous membranes. She has a punched-out lesion in her posterior pharynx and a few scattered ulcerations on the inner side of her lower lip. NECK: Supple. She had some discomfort to palpation of the left submandibu lar area, but no lymphadenopathy. CARDIOVASCULAR: Regular rate. No murmurs. CHEST: Clear to aus cultation bilaterally. ABDOMEN: Soft, nontender. Bowel sounds are present. EXTREMITIES: No club moses, cyanosis, or edema. NEUROLOGICAL: She was alert and oriented x4 with fluent speech. LABORATORY DATA: Laboratory today: Her sodium is 144, creatinine 0.6. AST 176, ALT 450, albumin is 3.0, total protein 6.0 (which is im proved from her discharge total protein of 4.8 and albumin of 2.5). In addition, her WBC was 5.0, h ematocrit 36, platelets of 207, 38% neutrophils, 53% lymphocytes, 1.4% eosinophils. Urinalysis was negative. Past review of studies previously performed include a CMV IgG positive, negative IgM, negative Monos pot, negative hepatitis B and C and A screening, influenza DFA negative, malaria smear was negative, rickettsial antibody for spotted fever IgM and IgG were negative. Blood cultures 07/25/2016 are no growth to date. Blood cultures from were also collected in the [facility] room today, 07/30, and are pending. Chest x-ray was performed that showed no focal infiltrates. ASSESSMENT AND PLAN: This is a 55-year-old woman who recently traveled to [facility]. Her trip w as complicated by traveler's diarrhea with Escherichia coli with Shiga producing toxin. The patient did receive 1 dose of antibiotics directed at Escherichia coli in the Emergency Room, but throughou t her hospital course her creatinine has been stable and no evidence of hemolysis. The rest of her hospital course, she was just given supportive care, no antibiotic therapy. Unusual to her clinical presentation were markedly elevated liver function tests, thrombocytopenia and leukopenia. Althoug h these could be part of a clinical syndrome with traveler's diarrhea, somewhat more severe than jessi ht expect. Considerations: Could have had a co-infection with another agent, including rickettsial illnesses which are typically empirically treated because of poor serologic testing. Also, could c onsider chikungunya as it has been reported in [facility], unlike the dengue and Zika which are no t common illnesses in this area. Prior to presentation in the emergency room, I was also considerin g other illnesses such as urinary tract infection or onset of Clostridium difficile, but based on ev aluation in the emergency room and laboratory analysis, this is less likely. In the emergency room, chikungunya serologies were sent. Also, another consideration, as patient has increased her activi ty too rapidly, which precipitated worsening malaise following her significant illness related to Es cherichia coli gastroenteritis. TIME SPENT: Time was 75 minutes, greater than 50% of time spent with education and counseling of th e patient, her family, specifically going over her labs in detail, plans for evaluation of chikungun ya, rule out UTI and C. diff. Educated patient to gradually increase her activity. The patient rem ains not an infectious risk to her family with good hand hygiene. Thank you for this consultation. We will continue to follow this patient as an outpatient. /[id number]/MODL
== END 2016-07-30 16:13 | disposition home or self-care (01) ==
DX: A09 Infectious gastroenteritis and colitis, unspecified (principal); B34.9 Viral infection, unspecified
CPT/HCPCS: 86790-90; 96374

== ENCOUNTER 2016-10-06 20:42 | Emergency (ER) | payer OTHER ==
[2016-10-06] MEDS ORDERED: IPRATROPIUM/ALBUTEROL 3 ML DEYVIAL IH ONE (20:50)
[2016-10-06] MEDS ORDERED: ALBUTEROL 3 ML DEYVIAL IH ONE ×3 (20:51→21:19)
[2016-10-06] MEDS ORDERED: predniSONE 20 MG TAB PO ONE (20:51)
--- NOTE | 2016-10-06 20:55 | EDPHY ---
H & P Time Seen by Provider: 10/06/16 20:47 HPI/ROS: CHIEF COMPLAINT: Shortness of breath HISTORY OF PRESENT ILLNESS: 55-year-old woman with a 5-6 year history of asthma presents with shortness of breath the last 5 or 6 days. She attributes this to pollen and moving into a new house. If she has a new inhaler, Ventolin , and has been using it without relief of her symptoms. She says her shortness of breath today is moderate to severe. Still a bit worse with exertion. Associated with a dry cough but not with hemoptysis or sputum production. No fever or chills or leg swelling. Not associated with chest pain. She says she has had multiple attacks in last 5 or 6 years and when she gets nebulizer treatment she feels a lot better and goes home. REVIEW OF SYSTEMS: Eye: no change in vision ENT: no sore throat Cardiac: no chest pain or syncope Pulmonary: HPI Abdomen: no vomiting, diarrhea, abdominal pain Musculoskeletal: No leg swelling Skin: no rash Neuro: no headache Constitutional: no fever : no urinary symptoms A comprehensive 10 point review of systems is otherwise negative aside from elements mentioned in the history of present illness. PAST MEDICAL HISTORY: Admission in the end of July of this year for transaminitis and E coli diarrhea. Asthma for the past 6 years. Social history: 1 cigarette a day. No travel or immobilization since her trip in July of this year. General Appearance: Alert and conversant, cooperative. Eyes: No scleral icterus. ENT, Mouth: Normal mucous membranes. Respiratory: Breath sounds equal, prolonged expiratory effort, wheezing bilaterally. Cardiovascular: Regular rate and rhythm. Gastrointestinal: Abdomen is soft and non tender. Neurological: Alert and oriented x3. Normally conversant. Face symmetric, normal movement and sensation in all extremities. Skin: Warm and dry, no rashes. No urticaria. Musculoskeletal: No peripheral edema and no joint swelling. No calf tenderness. Psychiatric: Not agitated. Emergency Department course/MDM: Considered multiple diagnoses including but not limited to ACS or CHF or pulmonary embolism, all thought unlikely with wheezing on exam and presentation identical to previous reactive airway disease. Initial oxygen saturations 85%. DuoNeb, albuterol nebulizer, prednisone 60 mg discussed and consented. 2118: Feels much better, much less wheezing on exam, reading the news on her smart phone. Additional albuterol nebulizer x2. 2203: 97% RA 2216: Feels better, speaks in full sentences, less wheezing, saturation mid 90s on room air. Albuterol MDI and prednisone Rx to go. Smoking Status: Never smoked Constitutional: Initial Vital Signs Temperature (C) 36.4 C 10/06/16 20:45 Heart Rate 88 10/06/16 20:45 Respiratory Rate 18 10/06/16 20:45 Blood Pressure 139/88 H 10/06/16 20:45 O2 Sat (%) 86 L 10/06/16 20:45 O2 Delivery Mode Room Air Allergies/Adverse Reactions: No Known Allergies Allergy (Verified 10/06/16 20:55) Home Medications: Medication Instructions Recorded Albuterol Hfa Anes Only 10/06/16 predniSONE [prednisone 20mg (RX)] 40 mg PO DAILY 5 Days 10/06/16 Medical Decision Making Differential Diagnosis: Differential diagnosis considered for shortness of breath including but not limited to pulmonary infectious process, COPD, asthma, pulmonary embolus and congestive heart failure. - Data Points Medications Given: Discontinued Medications Albuterol (Proventil Neb) 3 ml IH EDNOW ONE Stop: 10/06/16 20:52 Last Admin: 10/06/16 21:07 Dose: 3 ml Albuterol (Proventil Neb) 3 ml IH EDNOW ONE Stop: 10/06/16 21:20 Last Admin: 10/06/16 21:23 Dose: 3 ml Albuterol (Proventil Neb) 3 ml IH EDNOW ONE Stop: 10/06/16 21:20 Last Admin: 10/06/16 21:39 Dose: 3 ml Albuterol Sulfate (Proventil Inh Prepack) 1 mdi TAKEHOME EDNOW ONE Stop: 10/06/16 22:02 Last Admin: 10/06/16 22:06 Dose: 1 mdi Albuterol/Ipratropium (Duoneb) 3 ml IH EDNOW ONE Stop: 10/06/16 20:51 Last Admin: 10/06/16 20:52 Dose: 3 ml Prednisone (Prednisone) 60 mg PO EDNOW ONE Stop: 10/06/16 20:52 Last Admin: 10/06/16 21:05 Dose: 60 mg Departure - Departure Disposition: Home, Routine, Self-Care Clinical Impression: Bronchospasm, acute Condition: Good Instructions: Albuterol (By breathing), Asthma (ED), Reactive Airways Disease ( ED), Bronchospasm (ED) Referrals: Trudi Roe MD [Primary Care Provider] - As per Instructions Prescriptions: predniSONE [prednisone 20mg (RX)] 40 mg PO DAILY 5 Days
[2016-10-06] MEDS ORDERED: ALBUTEROL INH PREPACK MDI TAKEHOME ONE (22:01)
[2016-10-06 22:05] VITALS: BP 105/64; PULSE 87; RESP 20; TEMP 98.1; O2SAT 97
== END 2016-10-06 22:17 | disposition home or self-care (01) ==
LOC: CED 20:42
DX: J98.01 Acute bronchospasm (principal); F17.210 Nicotine dependence, cigarettes, uncomplicated

== ENCOUNTER 2016-11-28 10:57 | Emergency (ER) | payer OTHER ==
[2016-11-28 11:12] VITALS: RESP 16
--- NOTE | 2016-11-28 11:40 | EDPHY ---
H & P Stated Complaint: DOUBLE VISION Time Seen by Provider: 11/28/16 11:03 HPI/ROS: Chief Complaint: Double vision HPI: 56-year-old woman who is been having waxing and waning double vision for the last 3 days. Patient states that began suddenly 3 days ago when she was brushing her teeth. Patient states she wakes up with a little bit of double vision but gets better during the course today. In the evening gets worse she noticed that it starts when she is reading and then she is notice some when she is watching television. Denies any headache. No new numbness or weakness. Patient was seen by an retail department reset today and told to go the ER to rule out a head bleed or stroke. Some nausea with no vomiting. Does not have any double vision right now. Does state that it seems that when she reads it is worse. She has had new glasses prescription from 3 weeks ago. Did not have any double vision prior to last Monday. ROS: 10 point Review of Systems is negative except as noted in the HPI. PMH: Asthma Medications: None Allergies: None Social History: Positive smoking, positive alcohol, no recreational drug use Family History: non-contributory Physical Exam: Gen: Awake, Alert, No Distress HEENT: Nose: no rhinorrhea Eyes: PERRLA, EOMI, visual acuity is 20 20/20 25 with correction. She has some diplopia when viewing closer then 16 inches which goes away with distance. Currently no diplopia further way then 16 inches. Extraocular movements are intact. Visual kelly are normal. Mouth: Moist mucosa Neck: Supple, no JVD Skin: no rash Neuro: CN II-XII intact, Sensation grossly intact, Strength 5/5 in bilateral upper and lower extremities - Personal History Current Tetanus Diphtheria and Acellular Pertussis (TDAP): Yes - Medical/Surgical History Hx Asthma: No Hx Chronic Respiratory Disease: No Hx Diabetes: No Hx Cardiac Disease: No Hx Renal Disease: No Hx Cirrhosis: No Hx Alcoholism: No Hx HIV/AIDS: No Hx Splenectomy or Spleen Trauma: No Other PMH: denies - Social History Smoking Status: Never smoked Constitutional: Initial Vital Signs Temperature (C) 36.6 C 11/28/16 11:09 Heart Rate 66 11/28/16 11:09 Respiratory Rate 16 11/28/16 11:09 Blood Pressure 136/81 H 11/28/16 11:09 O2 Sat (%) 93 11/28/16 11:09 O2 Delivery Mode Room Air Allergies/Adverse Reactions: No Known Allergies Allergy (Verified 11/28/16 11:12) Home Medications: Medication Instructions Recorded NK [No Known Home Meds] 11/28/16 Medical Decision Making - Diagnostics Imaging Results: CT scan is negative per Dr. Mallory. Imaging: Discussed imaging studies w/ on call Radiologist ED Course/Re-evaluation: Patient with intermittent diplopia, negative CT scan brain right now. Patient does not have significant diplopia at this time but does with very close accommodation. Patient will be discharged with follow up with Ophthalmology, return for worsening. Departure - Departure Disposition: Home, Routine, Self-Care Clinical Impression: Double vision Condition: Good Instructions: Diplopia (ED) Additional Instructions: Follow up with ophthalmology, Dr. Hernandez, in 2-3 days for re-evaluation. Return to the emergency department for worsening double vision, uncontrolled nausea vomiting, headache, or any other concerns. Referrals: Trudi Roe MD [Primary Care Provider] - As per Instructions Hill Hernandez MD [Medical Doctor] - As per Instructions
[2016-11-28 12:10] VITALS: BP 128/80; PULSE 65; TEMP 98.6; O2SAT 94
== END 2016-11-28 12:10 | disposition home or self-care (01) ==
LOC: CED 10:57
DX: H53.2 Diplopia (principal); J45.909 Unspecified asthma, uncomplicated; F17.200 Nicotine dependence, unspecified, uncomplicated
CPT/HCPCS: 70450-PO

== ENCOUNTER → 2016-12-17 | Outpatient (CLI) | payer OTHER ==
[~2016-12-17] MED LIST: GADOBUTROL 10 ML VIAL IVP ONE
== END ==
LOC: FIMAGING 07:48
PROVIDERS: ATTEND Ophthalmology Pediatric Ophthalmology and Strabismus Specialist
DX: H53.2 Diplopia (principal)
CPT/HCPCS: A9585